=== PATIENT | male | born 1960 | race African-American/Black ===

== ENCOUNTER 2016-10-20 11:31 | Emergency (ER) | payer OTHER ==
[2016-10-20] MEDS ORDERED: Morphine INJ* 4 MG/ML 1 ML SYRINGE IV ONE (13:40)
[2016-10-20] MEDS ORDERED: NS 0.9% 1000 ML* 1,000 ML IV ONE (13:40)
[2016-10-20] MEDS ORDERED: Ondansetron INJ* 2 MG/ML VIAL IV ONE (13:40)
--- NOTE | 2016-10-20 14:02 | RAD ---
INDICATION: Abdominal pain. Chest pain. COMPARISON: None TECHNIQUE: An AP portable view obtained at 1350 hours is submitted. FINDINGS: Bones/Soft Tissues: There are no acute bony findings. Cardiomediastinal: The cardiomediastinal silhouette is normal. Lungs: There are no infiltrates. Pleura: There are no pleural effusions. Other: There is no subdiaphragmatic free air. IMPRESSION: NO ACTIVE DISEASE.
[2016-10-20 14:20] LABS: Hematocrit 49 % (42-52); Mean Corpuscular HGB Conc 34 g/dl (31-36); Mean Corpuscular Hemoglobin 31 pg (27-31); Mean Corpuscular Volume 91 fL (80-94); Mean Platelet Volume 8 um3 (7.4-10.4); Red Blood Count 5.44 10^6/ul (4.0-5.4); Red Cell Distribution Width 15 % (10.5-15); White Blood Count 10.5 10^3/ul (3.5-10.8)
[2016-10-20 14:32] LABS: Albumin 4.5 g/dL (3.2-5.2); BUN/Creatinine Ratio 17.9 (8-20); C Reactive Protein 12.53 mg/L (< 5.00); Calcium 10.3 mg/dL (8.6-10.3); EGFR African American 82.3 (>60); Total Bilirubin 0.6 mg/dL (0.2-1.0); Total Protein 7.5 g/dL (6.4-8.9)
[2016-10-20] MEDS ORDERED: Pantoprazole IV* 40 MG IV ONE (14:35)
--- NOTE | 2016-10-20 14:41 | ED ---
I, Paul,Hugo, scribed for Mariana Padron MD on 10/20/16 at 1343 . Abdominal Pain/Male - HPI Summary HPI Summary: This 56 y/o male presents to ED from [facility] for mid abd pain since today AM. Positive Bright red blood in stool and on wipe, and n/v x2 this morning. Negative diarrhea. Antacid didn't alleviate the pain. PMHx includes Positive HIV that is controlled with medication and prostate CA at unknown stage. Pt was not able to report if his HIV viral load is well controlled or not, but does report that it was last checked last month. Unknown if he ever had pancreatitis. Unknown if he was ever dx with schizophrenia. Pt is current smoker , and is currently denying any substance use. - History of Current Complaint Chief Complaint: EDAbdPain Stated Complaint: ABD PAIN Time Seen by Provider: 10/20/16 13:14 Hx Obtained From: Patient Onset/Duration: Lasting Hours, Still Present Timing: Constant Pain Intensity: 8 Pain Scale Used: 0-10 Numeric Location: Epigastric Radiates: No Aggravating Factor(s): Nothing Alleviating Factor(s): Nothing Associated Signs And Symptoms: Positive: Blood in Stool. Negative: Diarrhea - Allergies/Home Medications Allergies/Adverse Reactions: Allergies Allergy/AdvReac Type Severity Reaction Status Date / Time Penicillins Allergy Hives Verified 10/20/16 11:33 PMH/Surg Hx/FS Hx/Imm Hx - Cancer History Cancer Type, Location and Year: Prostate CA Infectious Disease History: Yes Infectious Disease History: Denies: Traveled Outside the [place] in Last 30 Days - Family History Known Family History: Negative: Diabetes - Social History Occupation: Unemployed - [employer] Alcohol Use: None Hx Substance Use: No Substance Use Type: Reports: None Hx Tobacco Use: Yes Smoking Status (MU): Current Every Day Smoker Review of Systems Negative: Fever Positive: Abdominal Pain - mid abd pain, Vomiting, Nausea, Other - Bright red blood in stool and on wipe. Negative: Diarrhea Negative: dysuria All Other Systems Reviewed And Are Negative: Yes Physical Exam Triage Information Reviewed: Yes Vital Signs On Initial Exam: Initial Vitals Temp Pulse Resp BP Pulse Ox 98.7 F 92 20 136/85 100 10/20/16 11:33 10/20/16 11:33 10/20/16 11:33 10/20/16 11:33 10/20/16 11:33 Vital Signs Reviewed: Yes Appearance: Positive: Well-Appearing, No Pain Distress Skin: Positive: Warm, Skin Color Reflects Adequate Perfusion, Dry Head/Face: Positive: Normal Head/Face Inspection Eyes: Positive: EOMI, YENI Neck: Positive: Supple, Nontender Respiratory/Lung Sounds: Positive: Clear to Auscultation, Breath Sounds Present Cardiovascular: Positive: RRR, Pulses are Symmetrical in both Upper and Lower Extremities Abdomen Description: Positive: Nontender, No Organomegaly, Other: - Rectal exam -- negative Musculoskeletal: Positive: Strength/ROM Intact Neurological: Positive: Sensory/Motor Intact, Alert, Oriented to Person Place, Time Psychiatric: Positive: Affect/Mood Appropriate AVPU Assessment: Alert Diagnostics - Vital Signs Vital Signs Temp Pulse Resp BP Pulse Ox 10/20/16 11:33 98.7 F 92 20 136/85 100 - Laboratory Lab Results: Lab Results 10/20/16 10/20/16 10/20/16 Range/Units 14:03 14:03 14:03 WBC 10.5 (3.5-10.8) 10^3/ul RBC 5.44 H (4.0-5.4) 10^6/ul Hgb 17.0 (14.0-18.0) g/dl Hct 49 (42-52) % MCV 91 (80-94) fL MCH 31 (27-31) pg MCHC 34 (31-36) g/dl RDW 15 (10.5-15) % Plt Count 232 (150-450) 10^3/ul MPV 8 (7.4-10.4) um3 Neut % (Auto) 77.4 (38-83) % Lymph % (Auto) 16.6 L (25-47) % [place] % (Auto) 5.5 (1-9) % Eos % (Auto) 0.1 (0-6) % Baso % (Auto) 0.4 (0-2) % Absolute Neuts (auto) 8.2 H (1.5-7.7) 10^3/ul Absolute Lymphs (auto) 1.7 (1.0-4.8) 10^3/ul Absolute Monos (auto) 0.6 (0-0.8) 10^3/ul Absolute Eos (auto) 0 (0-0.6) 10^3/ul Absolute Basos (auto) 0 (0-0.2) 10^3/ul Absolute Nucleated RBC 0 10^3/ul Nucleated RBC % 0 Sodium 136 (133-145) mmol/L Potassium 4.0 (3.5-5.0) mmol/L Chloride 104 (101-111) mmol/L Carbon Dioxide 24 (22-32) mmol/L Anion Gap 8 (2-11) mmol/L BUN 21 (6-24) mg/dL Creatinine 1.17 (0.67-1.17) mg/dL Est GFR ( Amer) 82.3 (>60) Est GFR (Non-Af Amer) 64.0 (>60) BUN/Creatinine Ratio 17.9 (8-20) Glucose 103 H (70-100) mg/dL Lactic Acid 1.3 (0.5-2.0) mmol/L Calcium 10.3 (8.6-10.3) mg/dL Total Bilirubin 0.60 (0.2-1.0) mg/dL AST 23 (13-39) U/L ALT 25 (7-52) U/L Alkaline Phosphatase 100 (34-104) U/L Troponin I 0.00 (<0.04) ng/mL C-Reactive Protein 12.53 H (< 5.00) mg/L Total Protein 7.5 (6.4-8.9) g/dL Albumin 4.5 (3.2-5.2) g/dL Globulin 3.0 (2-4) g/dL Albumin/Globulin Ratio 1.5 (1-3) Amylase 47 (29-103) U/L Lipase 11 (11.0-82.0) U/L Result Diagrams: 10/20/16 14:03 10/20/16 14:03 Lab Statement: Any lab studies that have been ordered have been reviewed, and results considered in the medical decision making process. - Radiology CXR Xray Interpretation: No Acute Changes Radiology Interpretation Completed By: Radiologist - EKG 1342 Cardiac Rate: NL - 75 bpm EKG Rhythm: Sinus Rhythm - Additional Comments Diagnostic Additional Comments: Stool Occult --- Negative Abdominal Pain Fem Course/Dx - Course Course Of Treatment: 56 yo male with hiv who reports epigastric pain today with emesis and noted some blood in stool. He rectal exam is negative here and labs are normal as well as vital signs including a neg lipase. Pt given protonix and sent with the same - Diagnoses Provider Diagnoses: Abdominal pain, Gastritis Discharge - Discharge Plan Condition: Stable Disposition: HOME Prescriptions: Ondansetron TAB* [Zofran 4 MG Tab*] 4 mg PO Q6H PRN #14 tab MDD 4 PRN Reason: Nausea Pantoprazole Sodium [Protonix] 20 mg PO QAM #14 tab Patient Education Materials: Ondansetron (By mouth), Pantoprazole (By mouth), Abdominal Pain (ED) Referrals: Jennifer PERALTA,Heather Watesr [Primary Care Provider] - 2 Days The documentation as recorded by the Paul lindsay Soohyun accurately reflects the service I personally performed and the decisions made by me, Mariana Padron MD.
[2016-10-20 15:28] VITALS: BP 142/68
== END 2016-10-20 15:31 | disposition home or self-care (01) ==
LOC: ED 11:31
DX: R10.9 Unspecified abdominal pain (principal); K29.70 Gastritis, unspecified, without bleeding; R11.2 Nausea with vomiting, unspecified; F17.210 Nicotine dependence, cigarettes, uncomplicated
CPT/HCPCS: 36415; 71010; 80053; 82150; 82272; 83605; 83690; 84484; 85025; 86140; 87040; 93005; 96374; 96375; 99283; J2270; J2405

== ENCOUNTER 2018-05-14 11:25 | Inpatient (IN) | payer OTHER ==
--- NOTE | 2018-05-14 12:01 | ED ---
Neurological HPI - HPI Summary HPI Summary: This pt is a 58 y/o male presenting to [facility] from [facility] c/o numbness and weakness for about 1 month now. Pt reports he has numbness in bilateral hands and right leg. He describes numbness in the whole right hand up to his forearm and on three fingers of his left hand. He also states having weakness on right leg and sometimes "it negra." Additionally notes neck pain. He denies chest pain, SOB, headache, dizziness, nausea, vomiting. PMHx: COPD, HTN. Denies hx of CVA. - History of Current Complaint Chief Complaint: EDExtremityUpper Stated Complaint: NUMBNESS IN HANDS AND RT LEG Hx Obtained From: Patient Onset/Duration: Started weeks ago - 1 month ago, Still Present Timing: Constant Current Severity: Moderate Neurological Deficit Location: RUE, LUE, RLE Pain Intensity: 0 - denies any pain Pain Scale Used: 0-10 Numeric Character: Weak - right leg, Numbness/Tingling - numbness in bilateral hands Aggravating: Nothing Alleviating: Nothing Associated Signs and Symptoms: Positive: Weakness, Pain - neck, Numbness. Negative: Headache, Dizziness, Nausea/Vomiting, Fever, Chest Pain, Shortness of Breath, Palpitations - Allergy/Home Medications Allergies/Adverse Reactions: Allergies Allergy/AdvReac Type Severity Reaction Status Date / Time Penicillins Allergy Hives Verified 05/14/18 13:02 Home Medications: Home Medications Acetaminophen TAB* [Tylenol TAB*] 650 mg PO BID 05/14/18 [History Confirmed ] Albuterol HFA INHALER* [Ventolin HFA Inhaler*] 2 puff INH QID PRN 05/14/18 [ History Confirmed 05/14/18] Atorvastatin* [Lipitor*] 20 mg PO DAILY 05/14/18 [History Confirmed 05/14/18] Cetirizine* [ZyrTEC 10 MG TAB*] 10 mg PO DAILY 05/14/18 [History Confirmed 05/14] Emtricitabine/Rilpivirine/Teno [Odefsey 200-25-25 mg] 1 tab PO DAILY 05/14/18 [ History Confirmed 05/14/18] Naproxen TAB* [Naprosyn 375 mg TAB*] 375 mg PO BID 05/14/18 [History Confirmed 05/14/18] Ranitidine TAB (NF) [Zantac TAB (NF)] 150 mg PO BID 05/14/18 [History Confirmed 05/14/18] Saliva Stimulant Comb. No.7 [Biotene Oralbalance Dry M] 1 gel PO DAILY PRN 05/14 [History Confirmed 05/14/18] PMH/Surg Hx/FS Hx/Imm Hx Endocrine/Hematology History: Denies: Hx Diabetes Cardiovascular History: Reports: Hx Hypertension Respiratory History: Reports: Hx Chronic Obstructive Pulmonary Disease (COPD) - Cancer History Cancer Type, Location and Year: Prostate CA Infectious Disease History: No Infectious Disease History: Denies: Traveled Outside the US in Last 30 Days - Family History Known Family History: Negative: Blood Disorder - Social History Alcohol Use: None Hx Substance Use: No Substance Use Type: Reports: None Hx Tobacco Use: Yes Smoking Status (MU): Current Every Day Smoker Review of Systems Negative: Fever, Chills Negative: Palpitations, Chest Pain Negative: Shortness Of Breath Negative: Abdominal Pain Musculoskeletal: Other - POSITIVE: neck pain Positive: Weakness, Paresthesia - on bilateral hands All Other Systems Reviewed And Are Negative: Yes Physical Exam - Summary Physical Exam Summary: VITAL SIGNS: Reviewed. GENERAL: Patient is a well-developed and nourished male who is lying comfortable in the stretcher. Patient is not in any acute respiratory distress. HEAD AND FACE: No signs of trauma. No ecchymosis, hematomas or skull depressions. No sinus tenderness. EYES: PERRLA, EOMI x 2, No injected conjunctiva, no nystagmus. EARS: Hearing grossly intact. Ear canals and tympanic membranes are within normal limits. MOUTH: Oropharynx within normal limits. NECK: Supple, trachea is midline, no adenopathy, no JVD, no carotid bruit, no c- spine tenderness, neck with full ROM. CHEST: Symmetric, no tenderness at palpation LUNGS: Clear to auscultation bilaterally. No wheezing or crackles. CVS: Regular rate and rhythm, S1 and S2 present, no murmurs or gallops appreciated. ABDOMEN: Soft, non-tender. No signs of distention. No rebound, no guarding, and no masses palpated. Bowel sounds are normal. EXTREMITIES: FROM in all major joints, no edema, no cyanosis or clubbing. NEURO: Alert and oriented x 3. Patient follows commands. He has tongue rolling when speaking. A little bit of decreased sensation on the right hand. Some weakness on right leg. SKIN: Dry and warm GCS: 15 Triage Information Reviewed: Yes Vital Signs On Initial Exam: Initial Vitals Temp Pulse Resp BP Pulse Ox 98.1 F 64 18 148/96 99 05/14/18 11:27 05/14/18 11:27 05/14/18 11:27 05/14/18 11:27 05/14/18 11:27 Vital Signs Reviewed: Yes Diagnostics - Vital Signs Vital Signs Temp Pulse Resp BP Pulse Ox 05/14/18 11:27 98.1 F 64 18 148/96 99 - Laboratory Result Diagrams: 05/14/18 12:45 05/14/18 12:45 Lab Statement: Any lab studies that have been ordered have been reviewed, and results considered in the medical decision making process. - CT Brain CT CT Interpretation Completed By: Radiologist Summary of CT Findings: IMPRESSION: No evidence for gross acute infarct, mass effect, or hemorrhage. Dr. Rangel has reviewed this report. Cervical spine CT CT Interpretation Completed By: Radiologist Summary of CT Findings: IMPRESSION: 1. Degenerative disc disease and osteoarthritis. 2. There is mild narrowing of the central canal C5-C6 and C6- C7. 3. There is multilevel neuroforaminal narrowing as described above. Dr. Rangel has reviewed this report. - EKG 12:20 Cardiac Rate: NL - at 60 bpm EKG Rhythm: Sinus Rhythm Summary of EKG Findings: J point elevation - Additional Comments Diagnostic Additional Comments: MRI Cervical Spine, as read by radiologist IMPRESSION: There is multilevel degenerative change of the cervical intervetebral discs most severe from C2/C3 to C4/C5. At this interval there is high-grade central canal stenosis with increased T2 bright fluid signal in the spinal cord. Please correlate to clinical signs of myelopathy. Dr. Rangel has reviewed this report. NIH Scale - NIH Scale Level of Consciousness: Alert/Keenly Responsive Ask Patient the Month and His/Her Age: Both Correct Ask Pt to Open/Close Eyes and Intercell Connector Placer/Release Non-Paretic Hand: Both Correctly Best Gaze (Only Horizontal Eye Movement): Normal Visual Field Testing: No Visual Loss Facial Paresis-Pt to Smile & Close Eyes or Grimace Symmetry: Normal/Symmetrical Motor Function - Right Arm: No Drift-Holds 10 Seconds Motor Function - Left Arm: No Drift-Holds 10 Seconds Motor Function - Right Leg: Drifts LT 10 seconds Motor Function - Left Leg: No Drift-Holds 10 Seconds Limb Ataxia-Must be out of Proportion to Weakness Present: Absent Sensory (Use Pinprick to Test Arms/Legs/Trunk/Face): Pinprick Less on Affected Best Language (Describe Picture, Name Items): No Aphasia Dysarthria (Read Several Words): Normal Extinction and Inattention: No Abnormality Total Score: 2 Re-Evaluation - Re-Evaluation First Eval Re-Evaluation Time: 13:52 Comment: Dr. Reyes, neurologist, recommends neck MRI. Course/Dx - Course Assessment/Plan: This pt is a 58 y/o male presenting [place] [facility] c/o numbness and weakness for about 1 month now. Pt reports he has numbness in bilateral hands and right leg. He describes numbness in the whole right hand up to his forearm and on three fingers of his left hand. He also states having weakness on right leg and sometimes "it negra." He denies chest pain, SOB, headache, dizziness, nausea, vomiting. Blood work without any significant abnormality except for a BUN of 25. Head CT impression: No evidence for gross acute infarct, mass effect or hemorrhage. C-spine CT impression: Degenerative disc disease and osteoarthritis. There is mild narrowing of the central canal at C5 and C6 and C6 and C7. There is multiple neural foraminal narrowing. At this point I discussed my physical exam and findings with Dr. Reyes from neurology and he will consult for this patient. Dr. Reyes recommends an MRI of the C-spine. C -spine MRI IMPRESSION: There is multilevel degenerative change of the cervical intervertebral discs most severe from C2/C3 to C4/C5. At this interval there is high-grade central canal stenosis with increased T2 bright fluid signal in the spinal cord. Please correlate to clinical signs of myelopathy. Findings discussed over the telephone with Dr. Reyes at 1642 hours on May 14, 2018. I discussed the case with Dr. Acosta from neurosurgery and he will consult for this patient as an inpatient. I discussed the case with Dr. Lofton from the hospitalist services who accepted the patient for admission. In the ED course the patient was given Toradol, Decadron, and Norflex. At this point the patient is hemodynamically stable, alert and oriented 3. - Diagnoses Provider Diagnoses: Myelopathy, Cord compression - Physician Notifications Discussed Care Of Patient With: Brendon Reyse Time Discussed With Above Provider: 13:06 Instructed by Provider To: Other - I discussed the case with Dr. Reyes, neurologist, who is coming to see the pt in the ED. [17:18] I discussed with Dr. Acosta, neurosurgeon, who will consult on the pt as an inpatient. [17:28] I spoke with Dr. Lofton, hospitalist, who accepted the pt for admission. Discharge - Sign-Out/Discharge Documenting (check all that apply): Patient Departure - [place] [facility] [place] Discharge Plan Condition: Stable Disposition: ADMITTED TO [facility] Referrals: Jennifer PERALTA,Heather Waters [Primary Care Provider] - - Billing Disposition and Condition Condition: STABLE Disposition: Admitted to [facility] - Attestation Statements Document Initiated by Apple: Yes Documenting Scribe: Ilsa Booth Provider For Whom Apple is Documenting (Include Credential): Ricardo Rangel MD Scribe Attestation: I, Ilsa Booth, scribed for Ricardo Rangel MD on 05/14/18 at 1904. Scribe Documentation Reviewed: Yes Provider Attestation: The documentation as recorded by the Ilsa lindsay accurately reflects the service I personally performed and the decisions made by me, Ricardo Rangel MD Status of Scribe Document: Viewed
[2018-05-14] MEDS ORDERED: NS 0.9% 1000 ML* 1,000 ML IV ONE (12:03)
[2018-05-14 13:01] LABS: ABS Basophils 0 10^3/ul (0-0.2); ABS Eosinophils 0.1 10^3/ul (0-0.6); ABS Lymphocytes 2.3 10^3/ul (1.0-4.8); ABS Monocytes 0.5 10^3/ul (0-0.8); ABS Neutrophils 2.5 10^3/ul (1.5-7.7); ABS Nucleated RBC 0 10^3/ul; Eosinophil % 2.2 %; Hematocrit 46 % (42-52); Hemoglobin 16.1 g/dl (14.0-18.0); Lymphocyte % 41.9 %; Mean Corpuscular HGB Conc 35 g/dl (31-36); Mean Corpuscular Hemoglobin 33 pg (27-31); Mean Corpuscular Volume 95 fL (80-94); Mean Platelet Volume 7.7 fL (7.4-10.4); Nucleated Red Blood Cells % 0.3; Platelet Count 222 10^3/ul (150-450); Red Blood Count 4.84 10^6/ul (4.00-5.40); Red Cell Distribution Width 14 % (10.5-15); White Blood Count 5.5 10^3/ul (3.5-10.8)
[2018-05-14 13:20] LABS: INR 1.13 (0.77-1.02)
[2018-05-14 13:23] LABS: Albumin/Globulin Ratio 1.6 (1-3); BUN/Creatinine Ratio 21.9 (8-20); Calcium 9.4 mg/dL (8.6-10.3); EGFR Non-African American 65.5 (>60); Globulin 2.5 g/dL (2-4); HDL Cholesterol 32.9 mg/dL; Potassium 4.2 mmol/L (3.5-5.0); Total Bilirubin 0.4 mg/dL (0.2-1.0); Total Protein 6.5 g/dL (6.4-8.9)
[2018-05-14] MEDS ORDERED: Dexamethasone IV* 4 MG/ML 1 ML (4 MG) IV SLOW PU ONE (17:24)
[2018-05-14] MEDS ORDERED: Ketorolac INJ* 30 MG/ML 1 ML VIAL IM ONE (17:25)
[2018-05-14] MEDS ORDERED: Orphenadrine Citrate IV* 30 MG/ML 2 ML VIAL IV ONE (17:25)
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
[2018-05-14] MEDS ORDERED: Acetaminophen TAB* 325 MG PO PRN (18:48)
[2018-05-14] MEDS ORDERED: Albuterol HFA INHALER* 8 gm MDI INH PRN (18:48)
[2018-05-14] MEDS ORDERED: Dexamethasone IV* 4 MG in NS 0.9% 50 ML* 50 ML IVPB SCH (19:00)
[2018-05-14 19:54] LABS: Urine Appearance Clear; Urine Bilirubin Negative (Negative); Urine Blood Negative (Negative); Urine Color Yellow; Urine Glucose Negative (Negative); Urine Ketones Negative (Negative); Urine Nitrite Negative (Negative); Urine Protein Negative (Negative); Urine Specific Gravity 1.012 (1.010-1.030); Urine Urobilinogen Negative (Negative)
--- NOTE | 2018-05-14 20:03 | HP ---
ADMITTING HISTORY AND PHYSICAL: DATE OF ADMISSION: 05/14/18 CHIEF COMPLAINT: Bilateral hand numbness and leg weakness. HISTORY OF PRESENT ILLNESS: The patient is a 58-year-old gentleman with history of being HIV positive, on antiretroviral therapy; asthma ; GERD; and hyperlipidemia who is currently a resident at [facility]; who mentions that he has been having some problems with numbness in both hands for about a month. He mentions that all of his fingers on the right are numb; on the left, it is mainly on the first 3 digits. He denied any neck pain on the area. He denied any recent fevers or chills. Dr. Reyes has evaluated the patient who suggested a cervical MRI with an initial impression of probable bilateral carpal tunnel syndrome. Unfortunately, the MRI came back with an impression of multilevel degenerative change of the cervical intervertebral disk , most severe from C2-C3, C4- C5, and there is a high-grade central canal stenosis with increased T2 bright fluid signal in the spinal cord. I have discussed the above with Dr. Jain given Dr. Reyes's time has just recently for consults and Dr. Jain was up. He mentioned to call Neurosurgery right away and to further perform physical examination to further evaluate the patient for possible surgery. On my discussion with Dr. Acosta, he mentions that he does not seem to be as concerned at this time given the acuity and the length of time the patient has been having symptoms has been about a month. He mentioned to place the patient on dexamethasone IV q.6 hours until he is reevaluated by Neurosurgery and we will defer. PAST MEDICAL HISTORY: HIV positivity since 1994, on antiretroviral therapy; history of asthma; GERD; hyperlipidemia. ALLERGIES: To [place], where he gets hives. SOCIAL HISTORY: He has had previous history of smoking cocaine. He claims that he does not inject it or snort it. The last time he used was 4 years ago. He is currently a resident of [facility] for 18 months now. He has a history of 1 pack per day smoking history for greater than 40 years. He denies any history of alcohol use, and his daughter is his next of kin who lives in [place] and her number is [phone]. Another point of contact is his niece, Chayo, with a number of [phone]. REVIEW OF SYSTEMS: The patient denied any current headaches, dizziness, fevers , chills, nausea, vomiting, chest pain, shortness of breath, increased cough, or sputum production. He does complain of right knee pain, where he mentions that he had cracks often but currently not in pain. The pain on the right knee would come in on and off/intermittently. Denies any new skin lesions. The rest of the 14- point review of systems is otherwise unremarkable. PHYSICAL EXAMINATION GENERAL APPEARANCE: The patient is awake, alert, not in acute distress. VITAL SIGNS: Show the most recent vital signs of record with blood pressure 146 /103, 72 beats per minute heart rate, 16 per minute respiratory rate. HEENT: Normocephalic, atraumatic. PERRLA. Extraocular muscles intact. Negative for icterus. Moist oral mucosa. Negative throat erythema. NECK: Soft, supple with no cervical lymphadenopathy, no JVD. CHEST: Clear to auscultation bilaterally. Good air entry. No wheezes, rales, or rhonchi. HEART: S1, S2 within normal limits. Regular rate and rhythm. No murmurs, rubs , or gallops. ABDOMEN: Soft, nondistended, nontender. Normoactive bowel sounds x4 quadrants. EXTREMITIES: No cyanosis, clubbing, or edema. NEUROLOGIC: Numbness in the bilateral upper extremities as described above and the patient complains of weakness on the right lower extremity, but my examination as far as strength is concerned is about equal on both sides. PSYCHIATRIC: No active psychosis, depression. The patient with blunt affect. ASSESSMENT AND PLAN: 1. BL UE numbness: Possibly due to canal stenosis as shown in MRI; Spoke w/ both Drs. Jain and Dave. At this time, continue IV Dexamethasone per Dr. Acosta until pt is reassessed in AM. Given chronicity, per Dr. Acosta, no acute need for surgery at this time w/c can certainly be planned later when needed. Will defer. 2. Hypertension. We will place the patient on a heart-healthy diet and a low dose amlodipine and we will continue watchful waiting. 3. Chronic pain. Continue p.r.n. Tylenol and Tylenol b.i.d. as well as naproxen. 4. Gastroesophageal reflux disease. We will continue with famotidine. He was previously on ranitidine at home, but we will place him on famotidine as a formulary. 5. Human immunodeficiency virus positivity. We will continue Odefsey. 6. DVT prophylaxis: We will place the patient on Lovenox for DVT prophylaxis. 7. Disposition: For PT eval and we will await further input from Dr. Acosta. [id number]/[facility] #: [id number] KAIDEN
[2018-05-14] MEDS ORDERED: Enoxaparin(*) 40 MG/0.4 ML SYR SUBCUT SCH (21:00)
[2018-05-14] MEDS: Famotidine TAB* 20 MG PO SCH (23:10)
[2018-05-14] MEDS: Naproxen TAB* 375 MG PO SCH (23:11)
[2018-05-14] MEDS: Acetaminophen TAB* 325 MG PO SCH (23:11)
[2018-05-14] MEDS: Dexamethasone IV* 4 MG/ML 1 ML (4 MG) IV SLOW PU SCH (23:13)
[2018-05-14] MEDS: amLODIPine TAB* 5 MG PO SCH (23:24)
[2018-05-15] MEDS: Dexamethasone IV* 4 MG/ML 1 ML (4 MG) IV SLOW PU SCH ×4 (04:48→21:49)
[2018-05-15] MEDS: Naproxen TAB* 375 MG PO SCH ×2 (08:40→21:46)
[2018-05-15] MEDS: amLODIPine TAB* 5 MG PO SCH ×2 (08:41→10:31)
[2018-05-15] MEDS: Famotidine TAB* 20 MG PO SCH ×2 (08:41→21:48)
[2018-05-15] MEDS: Acetaminophen TAB* 325 MG PO SCH ×2 (08:41→21:47)
[2018-05-15] MEDS: Atorvastatin* 20 MG TAB PO SCH (08:41)
[2018-05-15] MEDS: Metoprolol Tartrate TAB* 25 MG PO SCH ×2 (10:31→21:48)
--- NOTE | 2018-05-15 11:23 | PN ---
Progress Note - Progress Note Date of Service: 05/15/18 SOAP: Subjective: []Patient with one month history of hand weakness. More recently he has had difficulty ambulating secondary to RLE weakness. He was seen in ER where workup revealed cervical spondylosis with cord signal changes at C3/4.Admitted by hospitalist service and started on steroids. Objective: []Bilat intrinsic weakness Bilat Hoffmans signs Prox RLE weakness,numbness Assessment: []MRI shows severe cord compression at C3/4 Plan: []Discussed need for surgery with patient. Have tentatively scheduled surgery for [facility] pending approval
--- NOTE | 2018-05-15 13:34 | PN ---
Subjective Date of Service: 05/15/18 Interval History: Pt seen and examined. Meds and labs reviewed. Pt in good spirits this AM and mentions his BLUE numbness has somewhat improved. CC: N/A. ROS: Denied VARNER/dizziness, F/C, N/V, CP, SOB, increased cough, sputum production , abd pain, diarrhea, constipation, dysuria, myalgias, arthralgias, throat pain , and new skin lesions. The rest of the 14 point ROS are unremarkable. PHYSICAL EXAM: GEN APPEARANCE: Awake, not in acute distress HEENT: NC/AT, PERRLA, moist oral mucosa, (-) throat erythema NECK: Soft, supple, (-) cervical LAD, (-)JVD HEART: S1S2 WNL, RRR, No MRG CHEST: CTA, BL, GAE, No W/R/R ABD: Soft, ND/NT, NABS 4x Q EXT: No C/C/E SKIN: Warm to touch PSYCH: No active psychosis, hallucinations, depression, SI/HI Objective Active Medications: Acetaminophen (Tylenol Tab*) 650 mg PO Q6H PRN PRN Reason: PAIN Acetaminophen (Tylenol Tab*) 650 mg PO BID [facility] Last Admin: 05/15/18 08:41 Dose: 650 mg Albuterol (Ventolin Hfa Inhaler*) 2 puff INH QID PRN PRN Reason: SHORTNESS OF BREATH Amlodipine Besylate (Norvasc Tab*) 10 mg PO DAILY [facility] Last Admin: 05/15/18 10:31 Dose: 5 mg Atorvastatin Calcium (Lipitor*) 20 mg PO DAILY [facility] Last Admin: 05/15/18 08:41 Dose: 20 mg Dexamethasone Sodium Phosphate (Decadron Iv*) 4 mg IV SLOW PU Q6H [facility] Last Admin: 05/15/18 10:31 Dose: 4 mg Emtricitabine/Rilpivirine/Tenofovir (Odefsey Tablet) 1 each PO DAILY [facility] Famotidine (Pepcid Tab*) 20 mg PO BID [facility] Last Admin: 05/15/18 08:41 Dose: 20 mg Heparin Sodium (Porcine) (Heparin Vial(*)) 5,000 units SUBCUT Q8HR [facility] Metoprolol Tartrate (Lopressor Tab*) 25 mg PO BID [facility] Last Admin: 05/15/18 10:31 Dose: 25 mg Naproxen (Naprosyn Tab*) 375 mg PO BID [facility] Last Admin: 05/15/18 08:40 Dose: 375 mg Vital Signs - 8 hr 05/15/18 05/15/18 05/15/18 07:16 08:00 12:12 Temperature 97.3 F 98.2 F Pulse Rate 93 Respiratory 24 24 18 Rate Blood Pressure 147/85 148/98 (mmHg) O2 Sat by Pulse 99 99 Oximetry Oxygen Devices in Use Now: None Result Diagrams: 05/14/18 12:45 05/14/18 12:45 Assess/Plan/Problems-Billing Assessment: - Patient Problems (1) Cord compression Current Visit: Yes Status: Acute Code(s): G95.20 - UNSPECIFIED CORD COMPRESSION SNOMED Code(s): 87834831 Comment: -Most severe at C2-C3 to C4-C5 -Appreciate Dr. Acosta input and pt being planned for cord decompression on -Continue IV Dexamethasone and PRN pain meds (2) HTN (hypertension) Current Visit: Yes Status: Acute Code(s): I10 - ESSENTIAL (PRIMARY) HYPERTENSION SNOMED Code(s): 88371332 Comment: -Advised life-style modifications -Maximized Amlodipine dose -Continue Heart healthy diet and will add low sodium as a dietary modification -Continue watchful waiting (3) Chronic pain Current Visit: Yes Status: Acute Code(s): G89.29 - OTHER CHRONIC PAIN SNOMED Code(s): 55529764 Comment: -Well-controlled (4) HIV (human immunodeficiency virus infection) Current Visit: Yes Status: Acute Comment: -Continue anti-retroviral therapy (5) GERD (gastroesophageal reflux disease) Current Visit: Yes Status: Acute Code(s): K21.9 - GASTRO-ESOPHAGEAL REFLUX DISEASE WITHOUT ESOPHAGITIS SNOMED Code(s): 458842851 Comment: -Continue Famotidine (6) DVT prophylaxis Current Visit: Yes Status: Acute Code(s): UIB1293 - SNOMED Code(s): 535956986 Comment: -Will D/C Lovenox and instead will place pt on Heparin SQ in anticipation of decompressive Sx on Thursday Status and Disposition: -As above
[2018-05-15] MEDS: Heparin VIAL(*) 5000 UNITS/ML VIAL (FIVE THOUSAND) SUBCUT SCH ×2 (13:44→21:55)
[2018-05-15] MEDS: PTO: Emtricitabine/Rilpivirine/Teno (Odefsey) 200/25/25 TABLET PO SCH (15:14)
[2018-05-15] MEDS ORDERED: Nicotine Inhaler* 10 MG AMP INH PRN (18:18)
[2018-05-15] MEDS: Nicotine PATCH 21 MG/24 HR* PATCH TRANSDERM SCH (18:31)
--- NOTE | 2018-05-15 21:30 | CONS ---
NEUROLOGICAL FOLLOWUP NOTE: DATE OF NOTE: 05/15/18 PATIENT OF: Dr. Encarnacion and Dr. Acosta. HISTORY: This is a 58-year-old man I am seeing in followup for his cervical stenosis mostly at C3-4 with a history of weakness in his right hand, buckling of his right leg and numbness in both hands for about a month with an MRI scan, which I reviewed showing significant stenosis in his cervical cord with some cord compression at C3 and C4. MEDICATIONS: 1. Dexamethasone 4 mg q.6 hours. 2. Of note, he is treated for HIV with Odefsey 1 tab daily. 3. Norvasc 10 mg daily. 4. Lipitor. PHYSICAL EXAMINATION: He has no worsening since yesterday on exam. Temperature 98.2, pulse 93, respirations 18, blood pressure 148/98. He is alert and oriented with normal speech and comprehension. Cranial nerves II through XII are intact. Motor exam revealed weakness in his right arm with trace weakness in his right leg. Brisk reflexes 3+ in both legs, 1 in his arms. Toes are downgoing. IMAGING: Review of his MRI scan as above. ASSESSMENT/PLAN: Dr. Acosta has seen him and is planning on surgery to treat his significant cervical stenosis/myelopathy and will be doing this in a timely manner. The patient has been stable since yesterday and these symptoms have been going on for about a month overall. I will not be available through this weekend and another neurologist will be on. Please call us as needed. Thank you for sharing his case. [id number]/[facility] #: [id number] MTDD
[2018-05-16] MEDS: Dexamethasone IV* 4 MG/ML 1 ML (4 MG) IV SLOW PU SCH ×4 (04:20→22:04)
[2018-05-16] MEDS: Heparin VIAL(*) 5000 UNITS/ML VIAL (FIVE THOUSAND) SUBCUT SCH ×3 (05:49→22:04)
[2018-05-16 07:13] LABS: Hematocrit 46 % (42-52); Mean Corpuscular HGB Conc 35 g/dl (31-36); Mean Corpuscular Hemoglobin 33 pg (27-31); Mean Corpuscular Volume 94 fL (80-94); Mean Platelet Volume 8.5 fL (7.4-10.4); Platelet Count 246 10^3/ul (150-450); Red Blood Count 4.89 10^6/ul (4.00-5.40); Red Cell Distribution Width 14 % (10.5-15); White Blood Count 20.9 10^3/ul (3.5-10.8)
[2018-05-16 07:32] LABS: Albumin 4.4 g/dL (3.2-5.2); Albumin/Globulin Ratio 1.7 (1-3); BUN/Creatinine Ratio 21.6 (8-20); Calcium 9.8 mg/dL (8.6-10.3); EGFR Non-African American 74.5 (>60); Globulin 2.6 g/dL (2-4); Magnesium 2.1 mg/dL (1.9-2.7); Phosphorus 3.5 mg/dL (2.5-5.0); Potassium 4.2 mmol/L (3.5-5.0); Total Bilirubin 0.4 mg/dL (0.2-1.0)
[2018-05-16] MEDS: Nicotine PATCH 21 MG/24 HR* PATCH TRANSDERM SCH (08:19)
[2018-05-16] MEDS: Acetaminophen TAB* 325 MG PO SCH ×2 (08:20→20:23)
[2018-05-16] MEDS: Famotidine TAB* 20 MG PO SCH ×2 (08:20→20:22)
[2018-05-16] MEDS: amLODIPine TAB* 5 MG PO SCH (08:20)
[2018-05-16] MEDS: Metoprolol Tartrate TAB* 25 MG PO SCH ×2 (08:21→20:21)
[2018-05-16] MEDS: Atorvastatin* 20 MG TAB PO SCH (08:21)
[2018-05-16] MEDS: PTO: Emtricitabine/Rilpivirine/Teno (Odefsey) 200/25/25 TABLET PO SCH (08:25)
[2018-05-16] MEDS: Naproxen TAB* 375 MG PO SCH (08:25)
--- NOTE | 2018-05-16 12:58 | PN ---
Subjective Date of Service: 05/16/18 Interval History: Pt seen and examined. Meds and labs reviewed. D/W Dr. Acosta this AM given he mentions his anesthesiologist noted that EKG has some ST segment elevation. Clarified that there is no new EKG changes from previous EKG dated 10/20/16. Furthermore, pt is both asymptomatic with normal troponins on admission. I did offer to trend troponins x2 more to make sure there are no confounders to this interpretation. Please see discussion below. CC: N/A ROS: Denied VARNER/dizziness, F/C, N/V, CP, SOB, increased cough, sputum production , abd pain, diarrhea, constipation, dysuria, myalgias, arthralgias, throat pain , and new skin lesions. The rest of the 14 point ROS are unremarkable. PHYSICAL EXAM: GEN APPEARANCE: Awake, not in acute distress HEENT: NC/AT, PERRLA, moist oral mucosa, (-) throat erythema NECK: Soft, supple, (-) cervical LAD, (-)JVD HEART: S1S2 WNL, RRR, No MRG CHEST: CTA, BL, GAE, No W/R/R ABD: Soft, ND/NT, NABS 4x Q EXT: No C/C/E SKIN: Warm to touch PSYCH: No active psychosis, hallucinations, depression, SI/HI Objective Active Medications: Acetaminophen (Tylenol Tab*) 650 mg PO Q6H PRN PRN Reason: PAIN Acetaminophen (Tylenol Tab*) 650 mg PO BID [facility] Last Admin: 05/16/18 08:20 Dose: 650 mg Albuterol (Ventolin Hfa Inhaler*) 2 puff INH QID PRN PRN Reason: SHORTNESS OF BREATH Amlodipine Besylate (Norvasc Tab*) 10 mg PO DAILY [facility] Last Admin: 05/16/18 08:20 Dose: 10 mg Atorvastatin Calcium (Lipitor*) 20 mg PO DAILY [facility] Last Admin: 05/16/18 08:21 Dose: 20 mg Dexamethasone Sodium Phosphate (Decadron Iv*) 4 mg IV SLOW PU Q6H [facility] Last Admin: 05/16/18 12:09 Dose: 4 mg Emtricitabine/Rilpivirine/Tenofovir (Odefsey Tablet) 1 each PO DAILY [facility] Last Admin: 05/16/18 08:25 Dose: 1 each Famotidine (Pepcid Tab*) 20 mg PO BID [facility] Last Admin: 05/16/18 08:20 Dose: 20 mg Heparin Sodium (Porcine) (Heparin Vial(*)) 5,000 units SUBCUT Q8HR [facility] Last Admin: 05/16/18 05:49 Dose: 5,000 units Metoprolol Tartrate (Lopressor Tab*) 25 mg PO BID [facility] Last Admin: 05/16/18 08:21 Dose: 25 mg Nicotine (Nicotine Inhaler*) 10 mg INH Q2H PRN PRN Reason: CRAVING Nicotine (Nicotine Patch 21 Mg/24 Hr*) 1 patch TRANSDERM DAILY [facility] Last Admin: 05/16/18 08:19 Dose: 1 patch Oxycodone/Acetaminophen (Percocet 5/325 Tab*) 1 tab PO Q6H PRN PRN Reason: PAIN Vital Signs - 8 hr 05/16/18 05/16/18 07:30 11:33 Temperature 98.3 F 98.9 F Respiratory 16 18 Rate Blood Pressure 155/96 144/79 (mmHg) O2 Sat by Pulse 99 98 Oximetry Oxygen Devices in Use Now: None Result Diagrams: 05/16/18 06:17 05/16/18 06:17 Assess/Plan/Problems-Billing Assessment: - Patient Problems (1) Cord compression Current Visit: Yes Status: Acute Code(s): G95.20 - UNSPECIFIED CORD COMPRESSION SNOMED Code(s): 94372748 Comment: -Most severe at C2-C3 to C4-C5 -Appreciate Drs. Dale, Denton, and Crystal input and pt being planned for cord decompression on 05/17/18 -Continue IV Dexamethasone and PRN pain meds (2) Leukocytosis Current Visit: Yes Status: Acute Code(s): D72.829 - ELEVATED WHITE BLOOD CELL COUNT, UNSPECIFIED SNOMED Code(s): 119790299 Comment: -Pt is afebrile and hemodynamically stable -Likely due to peripheral demarginalization induced by Dexamethasone -Continue watchful waiting -Will check CXR pre-op, although my phys exam is normal (3) Pre-op evaluation Current Visit: Yes Status: Acute Code(s): Z01.818 - ENCOUNTER FOR OTHER PREPROCEDURAL EXAMINATION SNOMED Code(s): 385494303 Comment: -Pt is a low cardiac risk w/RCRI =1, constituting 0.9% perioperative MACE for a high risk neurosurgical procedure -Reviewed EKG w/Dr. Acosta and second set of troponin since admission remains normal and pt remains asymptomatic; no EKG changes and mainly diffuse J-point elevations on EKGNOT ST elevation -Other than asthma that is not in exacerbation, pt does not have any other history of cardiac nor pulmonary problems and none are active at this time. -Will check CXR pre-op given leukocytosis, although my phys exam is normal (4) HTN (hypertension) Current Visit: Yes Status: Acute Code(s): I10 - ESSENTIAL (PRIMARY) HYPERTENSION SNOMED Code(s): 66584485 Comment: -Advised life-style modifications -Maximized Amlodipine dose -Continue Heart healthy diet and will add low sodium as a dietary modification -Continue watchful waiting (5) Chronic pain Current Visit: Yes Status: Acute Code(s): G89.29 - OTHER CHRONIC PAIN SNOMED Code(s): 33420157 Comment: -Well-controlled (6) HIV (human immunodeficiency virus infection) Current Visit: Yes Status: Acute Comment: -Continue anti-retroviral therapy (7) GERD (gastroesophageal reflux disease) Current Visit: Yes Status: Acute Code(s): K21.9 - GASTRO-ESOPHAGEAL REFLUX DISEASE WITHOUT ESOPHAGITIS SNOMED Code(s): 918124816 Comment: -Continue Famotidine (8) DVT prophylaxis Current Visit: Yes Status: Acute Code(s): OVS0224 - SNOMED Code(s): 393978475 Comment: -Continue SQ Heparin Status and Disposition: -Pt is a low cardiac risk w/RCRI =1, constituting 0.9% perioperative MACE for a high risk neurosurgical procedure -For planned cord decompression in AM
[2018-05-16] MEDS: oxyCODONE/Acetamin 5/325 MG* TAB PO PRN ×2 (14:14→20:21)
[2018-05-17] MEDS: Heparin VIAL(*) 5000 UNITS/ML VIAL (FIVE THOUSAND) SUBCUT SCH ×3 (05:43→22:01)
[2018-05-17] MEDS: Dexamethasone IV* 4 MG/ML 1 ML (4 MG) IV SLOW PU SCH ×2 (05:48→13:32)
[2018-05-17 07:03] LABS: Hematocrit 46 % (42-52); Mean Corpuscular HGB Conc 35 g/dl (31-36); Mean Corpuscular Hemoglobin 33 pg (27-31); Mean Corpuscular Volume 95 fL (80-94); Mean Platelet Volume 7.9 fL (7.4-10.4); Platelet Count 242 10^3/ul (150-450); Red Blood Count 4.82 10^6/ul (4.00-5.40); Red Cell Distribution Width 14 % (10.5-15); White Blood Count 18.6 10^3/ul (3.5-10.8)
[2018-05-17 07:16] LABS: BUN/Creatinine Ratio 30.7 (8-20); Calcium 9.5 mg/dL (8.6-10.3); EGFR Non-African American 75.4 (>60); Potassium 4.1 mmol/L (3.5-5.0)
--- NOTE | 2018-05-17 08:42 | PN ---
Subjective Date of Service: 05/17/18 Interval History: Some pain in knee and arms, well controlled. Walks a little Occ cough. No new c/o. Objective Active Medications: Acetaminophen (Tylenol Tab*) 650 mg PO Q6H PRN PRN Reason: PAIN Acetaminophen (Tylenol Tab*) 650 mg PO BID [facility] Last Admin: 05/16/18 20:23 Dose: Not Given Albuterol (Ventolin Hfa Inhaler*) 2 puff INH QID PRN PRN Reason: SHORTNESS OF BREATH Amlodipine Besylate (Norvasc Tab*) 10 mg PO DAILY [facility] Last Admin: 05/16/18 08:20 Dose: 10 mg Atorvastatin Calcium (Lipitor*) 20 mg PO DAILY [facility] Last Admin: 05/16/18 08:21 Dose: 20 mg Dexamethasone Sodium Phosphate (Decadron Iv*) 4 mg IV SLOW PU Q6H [facility] Last Admin: 05/17/18 05:48 Dose: 4 mg Emtricitabine/Rilpivirine/Tenofovir (Odefsey Tablet) 1 each PO DAILY [facility] Last Admin: 05/16/18 08:25 Dose: 1 each Famotidine (Pepcid Tab*) 20 mg PO BID [facility] Last Admin: 05/16/18 20:22 Dose: 20 mg Heparin Sodium (Porcine) (Heparin Vial(*)) 5,000 units SUBCUT Q8HR [facility] Last Admin: 05/17/18 05:43 Dose: Not Given Metoprolol Tartrate (Lopressor Tab*) 25 mg PO BID [facility] Last Admin: 05/16/18 20:21 Dose: 25 mg Nicotine (Nicotine Inhaler*) 10 mg INH Q2H PRN PRN Reason: CRAVING Nicotine (Nicotine Patch 21 Mg/24 Hr*) 1 patch TRANSDERM DAILY [facility] Last Admin: 05/16/18 08:19 Dose: 1 patch Oxycodone/Acetaminophen (Percocet 5/325 Tab*) 1 tab PO Q6H PRN PRN Reason: PAIN Last Admin: 05/16/18 20:21 Dose: 1 tab Vital Signs - 8 hr 05/17/18 02:53 Temperature 97.2 F Pulse Rate 82 Respiratory 19 Rate Blood Pressure 127/77 (mmHg) O2 Sat by Pulse 99 Oximetry Oxygen Devices in Use Now: None Appearance: Alert, partly up in bed. Neutral affect. Looks comfortable although in shackles. Eyes: No Scleral Icterus Ears/Nose/Mouth/Throat: NL Teeth, Lips, Gums Neck: NL Appearance and Movements; NL JVP, No Thyroid Enlargement, Masses Respiratory: Symmetrical Chest Expansion and Respiratory Effort, Clear to Auscultation, Clear to Percussion Cardiovascular: NL Sounds; No Murmurs; No JVD, RRR, No Edema, - Skin: No Rash or Ulcers, No Nodules or Sclerosis, - Neurological: Alert and Oriented x 3 - LAU, no tremor. Result Diagrams: 05/17/18 06:48 05/17/18 06:48 Assess/Plan/Problems-Billing Assessment: - Patient Problems (1) Cord compression Current Visit: Yes Status: Acute Code(s): G95.20 - UNSPECIFIED CORD COMPRESSION SNOMED Code(s): 91757475 Comment: -Most severe at C2-C3 to C4-C5 -Appreciate Drs. aDle, Denton, and Crystal input and pt being planned for cord decompression on 05/17/18 -Continue IV Dexamethasone and PRN pain meds (2) HTN (hypertension) Current Visit: Yes Status: Acute Code(s): I10 - ESSENTIAL (PRIMARY) HYPERTENSION SNOMED Code(s): 05346163 Comment: Continue Amlodipine. -Continue Heart healthy diet. (3) HIV (human immunodeficiency virus infection) Current Visit: Yes Status: Acute Comment: -Continue anti-retroviral therapy (4) Leukocytosis Current Visit: Yes Status: Acute Code(s): D72.829 - ELEVATED WHITE BLOOD CELL COUNT, UNSPECIFIED SNOMED Code(s): 567017836 Comment: -Pt is afebrile and hemodynamically stable -Likely due to peripheral demarginalization induced by Dexamethasone -Continue watchful waiting CXR 05/16 neg. (5) GERD (gastroesophageal reflux disease) Current Visit: Yes Status: Acute Code(s): K21.9 - GASTRO-ESOPHAGEAL REFLUX DISEASE WITHOUT ESOPHAGITIS SNOMED Code(s): 916583730 Comment: -Continue Famotidine (6) Tobacco abuse Current Visit: Yes Status: Acute Code(s): Z72.0 - TOBACCO USE SNOMED Code( s): 022648449 Comment: Continue NRT. Pt advised to quit smoking and avoid second hand smoke. Status and Disposition: -Pt is a low cardiac risk w/RCRI =1, constituting 0.9% perioperative MACE for a high risk neurosurgical procedure -For planned cord decompression in AM
[2018-05-17] MEDS ORDERED: Bacitracin IV* 50,000 UNITS INJ ONE (08:58)
[2018-05-17] MEDS ORDERED: Midazolam* 1 MG/ML 5 ML VIAL (5 MG) ONE (08:58)
[2018-05-17] MEDS ORDERED: fentaNYL* 50 MCG/ML 2 ML VIAL (100 MCG VIAL) ONE (08:58)
[2018-05-17] MEDS ORDERED: Lidocain 1% EPI 1:100,000 * 30 ML MDV ONE (08:58)
[2018-05-17] MEDS ORDERED: KETAMINE HCL* 50 MG/ML 10 ML VIAL ONE (08:58)
[2018-05-17] MEDS ORDERED: Thrombin 5,000 UNITS(BOVINE)* for Ultrasound Guided Pseudoaneursym ONE (08:58)
[2018-05-17] MEDS ORDERED: Atracurium* 10 MG/ML 10 ML VIAL ONE (08:58)
[2018-05-17] MEDS: Atorvastatin* 20 MG TAB PO SCH (09:04)
[2018-05-17] MEDS: Acetaminophen TAB* 325 MG PO SCH ×2 (09:04→22:00)
[2018-05-17] MEDS: PTO: Emtricitabine/Rilpivirine/Teno (Odefsey) 200/25/25 TABLET PO SCH (09:04)
[2018-05-17] MEDS: amLODIPine TAB* 5 MG PO SCH (09:05)
[2018-05-17] MEDS: Metoprolol Tartrate TAB* 25 MG PO SCH ×2 (09:05→22:01)
[2018-05-17] MEDS: oxyCODONE/Acetamin 5/325 MG* TAB PO PRN (09:05)
[2018-05-17] MEDS: Famotidine TAB* 20 MG PO SCH ×2 (09:05→22:00)
[2018-05-17] MEDS: Nicotine PATCH 21 MG/24 HR* PATCH TRANSDERM SCH (09:06)
[2018-05-17] MEDS ORDERED: Clindamycin 900 MG/D5W BAG(*) 900 MG/50 ML BAG IVPB ONE (09:31)
[2018-05-17] MEDS ORDERED: EPHEDrine (Pressors)* 50 MG/ML VIAL ONE (10:30)
[2018-05-17] MEDS ORDERED: Glycopyrrolate IV* 0.2 MG/ML 1 ML VIAL ONE (10:30)
[2018-05-17] MEDS ORDERED: Propofol* 10 MG/ML 20 ML BTL ONE (10:30)
[2018-05-17] MEDS ORDERED: Dexamethasone IV* 4 MG/ML 1 ML (4 MG) ONE (10:31)
[2018-05-17] MEDS ORDERED: Ondansetron INJ* 2 MG/ML VIAL ONE (10:31)
[2018-05-17] MEDS ORDERED: Lidocaine 2% PF * 5 ML VIAL ONE (10:32)
[2018-05-17] MEDS ORDERED: Morphine VIAL* 10 MG/ML 1 ML VIAL ONE (10:32)
[2018-05-17] MEDS ORDERED: Phenylephrine INJ* 10 MG/ML 1 ML VIAL (10 MG) ONE (10:32)
[2018-05-17] MEDS ORDERED: hydrALAZINE IV* 20 MG/ML VIAL ONE (11:01)
[2018-05-17] MEDS ORDERED: Ondansetron INJ* 2 MG/ML VIAL IV PRN (11:15)
[2018-05-17] MEDS ORDERED: Flumazenil* 0.1 MG/ML 5 ML MDV ONE (11:15)
[2018-05-17] MEDS ORDERED: Naloxone* 0.4 MG/ML 1 ML VIAL IV PRN (11:58)
[2018-05-17] MEDS ORDERED: fentaNYL* 50 MCG/ML 2 ML VIAL (100 MCG VIAL) IV PRN (11:58)
[2018-05-17] MEDS ORDERED: DiMENhydriNATE IV* 50 MG/ML VIAL IV PUSH PRN (11:58)
[2018-05-17] MEDS ORDERED: Morphine VIAL* 4 MG/ML VIAL (1 ml vial) IV PRN (11:58)
[2018-05-17] MEDS: Lactated Ringers 1000 ML Bag* 1,000 ML IV SCH (13:02)
[2018-05-17] MEDS: HYDROcodone/ACETAMIN 5-325 MG* 1 TAB PO PRN ×2 (15:13→22:00)
[2018-05-18] MEDS: Lactated Ringers 1000 ML Bag* 1,000 ML IV SCH (02:18)
[2018-05-18] MEDS: Heparin VIAL(*) 5000 UNITS/ML VIAL (FIVE THOUSAND) SUBCUT SCH ×3 (05:48→21:01)
[2018-05-18] MEDS: amLODIPine TAB* 5 MG PO SCH (07:47)
[2018-05-18] MEDS: HYDROcodone/ACETAMIN 5-325 MG* 1 TAB PO PRN (07:47)
[2018-05-18] MEDS: Atorvastatin* 20 MG TAB PO SCH (07:47)
[2018-05-18] MEDS: Nicotine PATCH 21 MG/24 HR* PATCH TRANSDERM SCH (07:48)
[2018-05-18] MEDS: Metoprolol Tartrate TAB* 25 MG PO SCH ×2 (07:48→20:58)
[2018-05-18] MEDS: Famotidine TAB* 20 MG PO SCH ×2 (07:48→20:57)
[2018-05-18] MEDS: Acetaminophen TAB* 325 MG PO SCH ×2 (07:49→20:56)
[2018-05-18] MEDS: PTO: Emtricitabine/Rilpivirine/Teno (Odefsey) 200/25/25 TABLET PO SCH (07:52)
--- NOTE | 2018-05-18 11:54 | PN ---
Subjective Date of Service: 05/18/18 Interval History: "My hands are coming back"--less numb and less weak. Pain control OK. Objective Active Medications: Acetaminophen (Tylenol Tab*) 650 mg PO Q6H PRN PRN Reason: PAIN Acetaminophen (Tylenol Tab*) 650 mg PO BID [facility] Last Admin: 05/18/18 07:49 Dose: Not Given Hydrocodone Bitart/Acetaminophen ([place] 5-325 Tab*) 2 tab PO Q4H PRN PRN Reason: marked pain Last Admin: 05/18/18 07:47 Dose: 2 tab Albuterol (Ventolin Hfa Inhaler*) 2 puff INH QID PRN PRN Reason: SHORTNESS OF BREATH Amlodipine Besylate (Norvasc Tab*) 10 mg PO DAILY [facility] Last Admin: 05/18/18 07:47 Dose: 10 mg Atorvastatin Calcium (Lipitor*) 20 mg PO DAILY [facility] Last Admin: 05/18/18 07:47 Dose: 20 mg Emtricitabine/Rilpivirine/Tenofovir (Odefsey Tablet) 1 each PO DAILY [facility] Last Admin: 05/18/18 07:52 Dose: Not Given Famotidine (Pepcid Tab*) 20 mg PO BID [facility] Last Admin: 05/18/18 07:48 Dose: 20 mg Heparin Sodium (Porcine) (Heparin Vial(*)) 5,000 units SUBCUT Q8HR [facility] Last Admin: 05/18/18 05:48 Dose: 5,000 units Lactated Ringer's (Lactated Ringers 1000 Ml Bag*) 1,000 mls @ 75 mls/hr IV .per rate [facility] Last Admin: 05/18/18 02:18 Dose: 75 mls/hr Metoprolol Tartrate (Lopressor Tab*) 25 mg PO BID [facility] Last Admin: 05/18/18 07:48 Dose: 25 mg Nicotine (Nicotine Inhaler*) 10 mg INH Q2H PRN PRN Reason: CRAVING Nicotine (Nicotine Patch 21 Mg/24 Hr*) 1 patch TRANSDERM DAILY [facility] Last Admin: 05/18/18 07:48 Dose: 1 patch Ondansetron HCl (Zofran Inj*) 4 mg IV Q6H PRN PRN Reason: NAUSEA/VOMITING Vital Signs - 8 hr 05/18/18 05/18/18 05/18/18 03:58 04:14 05:50 Temperature 98.2 F Pulse Rate 76 Respiratory 16 20 Rate Blood Pressure 152/84 (mmHg) O2 Sat by Pulse 100 100 Oximetry 05/18/18 05/18/18 05/18/18 07:47 07:54 07:55 Temperature 98.3 F Pulse Rate 77 Respiratory 18 16 16 Rate Blood Pressure 149/86 (mmHg) O2 Sat by Pulse 99 99 Oximetry 05/18/18 05/18/18 10:49 11:22 Temperature 98.2 F Pulse Rate 75 Respiratory 16 16 Rate Blood Pressure 129/84 (mmHg) O2 Sat by Pulse 100 Oximetry Oxygen Devices in Use Now: None Appearance: Alert, partly up in bed. In good spirits. Looks comfortable at rest. Eyes: No Scleral Icterus Respiratory: Symmetrical Chest Expansion and Respiratory Effort, Clear to Auscultation, Clear to Percussion Cardiovascular: NL Sounds; No Murmurs; No JVD, RRR, No Edema, - Neurological: Alert and Oriented x 3, NL Sensation - Handgrips strong BL. Foot dorsiflexion good BL. Result Diagrams: 05/17/18 06:48 05/17/18 06:48 Assess/Plan/Problems-Billing Assessment: - Patient Problems (1) Cord compression Current Visit: Yes Status: Acute Code(s): G95.20 - UNSPECIFIED CORD COMPRESSION SNOMED Code(s): 06683024 Comment: -Most severe at C2-C3 to C4-C5 S/P cervical decompression on 05/17/18 -Continue PRN pain meds (2) HTN (hypertension) Current Visit: Yes Status: Acute Code(s): I10 - ESSENTIAL (PRIMARY) HYPERTENSION SNOMED Code(s): 18011374 Comment: Continue Amlodipine. -Continue Heart healthy diet. (3) HIV (human immunodeficiency virus infection) Current Visit: Yes Status: Acute Comment: -Continue anti-retroviral therapy (4) Leukocytosis Current Visit: Yes Status: Acute Code(s): D72.829 - ELEVATED WHITE BLOOD CELL COUNT, UNSPECIFIED SNOMED Code(s): 487974823 Comment: -Pt is afebrile and hemodynamically stable -Likely due to peripheral demarginalization induced by Dexamethasone -Continue watchful waiting CXR 05/16 neg. (5) GERD (gastroesophageal reflux disease) Current Visit: Yes Status: Acute Code(s): K21.9 - GASTRO-ESOPHAGEAL REFLUX DISEASE WITHOUT ESOPHAGITIS SNOMED Code(s): 953597849 Comment: -Continue Famotidine (6) Tobacco abuse Current Visit: Yes Status: Acute Code(s): Z72.0 - TOBACCO USE SNOMED Code( s): 703180574 Comment: Continue NRT. Pt advised to quit smoking and avoid second hand smoke. Status and Disposition: -Pt is a low cardiac risk w/RCRI =1, constituting 0.9% perioperative MACE for a high risk neurosurgical procedure -For planned cord decompression in AM
--- NOTE | 2018-05-18 18:00 | PN ---
Progress Note - Progress Note Date of Service: 05/18/18 SOAP: Subjective: []POD # 1 Feels hands are better Moderate drain output Objective: []Mild intrinsic weakness Moderate drain output Assessment: []Satis post op course Plan: []Have PT see, D/C when drain out ,ambulating
[2018-05-19] MEDS: HYDROcodone/ACETAMIN 5-325 MG* 1 TAB PO PRN (03:29)
[2018-05-19] MEDS: Heparin VIAL(*) 5000 UNITS/ML VIAL (FIVE THOUSAND) SUBCUT SCH ×3 (05:32→21:29)
[2018-05-19] MEDS: Acetaminophen TAB* 325 MG PO SCH ×2 (08:50→21:29)
[2018-05-19] MEDS: Famotidine TAB* 20 MG PO SCH ×2 (08:50→21:29)
[2018-05-19] MEDS: Atorvastatin* 20 MG TAB PO SCH (08:50)
[2018-05-19] MEDS: amLODIPine TAB* 5 MG PO SCH (08:50)
[2018-05-19] MEDS: Metoprolol Tartrate TAB* 25 MG PO SCH ×2 (08:51→21:30)
[2018-05-19] MEDS: Nicotine PATCH 21 MG/24 HR* PATCH TRANSDERM SCH ×2 (08:51→08:53)
[2018-05-19] MEDS: PTO: Emtricitabine/Rilpivirine/Teno (Odefsey) 200/25/25 TABLET PO SCH (08:52)
[2018-05-19] MEDS ORDERED: Magnesium Hydroxide LIQ* 30 ML UDC PO ONE (09:29)
--- NOTE | 2018-05-19 16:36 | PN ---
Subjective Date of Service: 05/19/18 Interval History: Little pain. Appetite OK. No bowel c/o after MOM. Pt states he has wlaked some. Objective Active Medications: Acetaminophen (Tylenol Tab*) 650 mg PO Q6H PRN PRN Reason: PAIN Last Admin: 05/18/18 13:30 Dose: 650 mg Acetaminophen (Tylenol Tab*) 650 mg PO BID [facility] Last Admin: 05/19/18 08:50 Dose: 650 mg Hydrocodone Bitart/Acetaminophen ([place] 5-325 Tab*) 2 tab PO Q4H PRN PRN Reason: marked pain Last Admin: 05/19/18 03:29 Dose: 2 tab Albuterol (Ventolin Hfa Inhaler*) 2 puff INH QID PRN PRN Reason: SHORTNESS OF BREATH Amlodipine Besylate (Norvasc Tab*) 10 mg PO DAILY [facility] Last Admin: 05/19/18 08:50 Dose: 10 mg Atorvastatin Calcium (Lipitor*) 20 mg PO DAILY [facility] [place] Last Admin: 05/19/18 08:50 Dose: 20 mg Emtricitabine/Rilpivirine/Tenofovir (Odefsey Tablet) 1 each PO DAILY [facility] [place] Last Admin: 05/19/18 08:52 Dose: Not Given Famotidine (Pepcid Tab*) 20 mg PO BID [facility] [place] Last Admin: 05/19/18 08:50 Dose: 20 mg Heparin Sodium (Porcine) (Heparin Vial(*)) 5,000 units SUBCUT Q8HR [facility] Last Admin: 05/19/18 14:09 Dose: 5,000 units Lactated Ringer's (Lactated Ringers 1000 Ml Bag*) 1,000 mls @ 75 mls/hr IV .per rate [facility] [place] Last Admin: 05/18/18 02:18 Dose: 75 mls/hr Metoprolol Tartrate (Lopressor Tab*) 25 mg PO BID [facility] [place] Last Admin: 05/19/18 08:51 Dose: 25 mg Nicotine (Nicotine Inhaler*) 10 mg INH Q2H PRN PRN Reason: CRAVING Nicotine (Nicotine Patch 21 Mg/24 Hr*) 1 patch TRANSDERM DAILY [facility] [place] Last Admin: 05/19/18 08:53 Dose: Not Given Ondansetron HCl (Zofran Inj*) 4 mg IV Q6H PRN PRN Reason: NAUSEA/VOMITING Polyethylene Glycol/Electrolytes (Miralax*) 17 gm PO 0800,2100 [facility] Vital Signs - 8 hr 05/19/18 11:53 Temperature 98.2 F Pulse Rate 77 Respiratory 17 Rate Blood Pressure 105/70 (mmHg) O2 Sat by Pulse 98 Oximetry Oxygen Devices in Use Now: None Appearance: Alert, on his side in bed. In good spirits. Looks comfortable. Eyes: No Scleral Icterus Neurological: Alert and Oriented x 3, NL Sensation - LAU. Some dykinetic movements of mouth as before. Result Diagrams: 05/17/18 06:48 05/17/18 06:48 Assess/Plan/Problems-Billing Assessment: - Patient Problems (1) Cord compression Current Visit: Yes Status: Acute Code(s): G95.20 - UNSPECIFIED CORD COMPRESSION SNOMED Code(s): 94654888 Comment: -Most severe at C2-C3 to C4-C5 S/P cervical decompression on 05/17/18 -Continue PRN pain meds Discharge as per Dr. Acosta. (2) HTN (hypertension) Current Visit: Yes Status: Acute Code(s): I10 - ESSENTIAL (PRIMARY) HYPERTENSION SNOMED Code(s): 13664136 Comment: Continue Amlodipine. -Continue Heart healthy diet. (3) HIV (human immunodeficiency virus infection) Current Visit: Yes Status: Acute Comment: -Continue anti-retroviral therapy (4) Leukocytosis Current Visit: Yes Status: Acute Code(s): D72.829 - ELEVATED WHITE BLOOD CELL COUNT, UNSPECIFIED SNOMED Code(s): 471241012 Comment: -Pt is afebrile and hemodynamically stable -Likely due to peripheral demarginalization induced by Dexamethasone -Continue watchful waiting CXR 05/16 neg. (5) GERD (gastroesophageal reflux disease) Current Visit: Yes Status: Acute Code(s): K21.9 - GASTRO-ESOPHAGEAL REFLUX DISEASE WITHOUT ESOPHAGITIS SNOMED Code(s): 285321661 Comment: -Continue Famotidine (6) Tobacco abuse Current Visit: Yes Status: Acute Code(s): Z72.0 - TOBACCO USE SNOMED Code( s): 731728124 Comment: Continue NRT. Pt advised to quit smoking and avoid second hand smoke. Status and Disposition: -Pt is a low cardiac risk w/RCRI =1, constituting 0.9% perioperative MACE for a high risk neurosurgical procedure -For planned cord decompression in AM
[2018-05-19] MEDS: Polyethylene Glycol 3350* 17 GM PACKET PO SCH (21:33)
[2018-05-20] MEDS: HYDROcodone/ACETAMIN 5-325 MG* 1 TAB PO PRN (04:15)
[2018-05-20] MEDS: Heparin VIAL(*) 5000 UNITS/ML VIAL (FIVE THOUSAND) SUBCUT SCH (06:35)
[2018-05-20] MEDS: amLODIPine TAB* 5 MG PO SCH (08:45)
[2018-05-20] MEDS: Famotidine TAB* 20 MG PO SCH (08:45)
[2018-05-20] MEDS: Nicotine PATCH 21 MG/24 HR* PATCH TRANSDERM SCH (08:45)
[2018-05-20] MEDS: Metoprolol Tartrate TAB* 25 MG PO SCH (08:45)
[2018-05-20] MEDS: Acetaminophen TAB* 325 MG PO SCH (08:45)
[2018-05-20] MEDS: Atorvastatin* 20 MG TAB PO SCH (08:45)
[2018-05-20] MEDS: PTO: Emtricitabine/Rilpivirine/Teno (Odefsey) 200/25/25 TABLET PO SCH (08:46)
[2018-05-20] MEDS: Polyethylene Glycol 3350* 17 GM PACKET PO SCH (08:47)
[2018-05-20 09:23] LABS: Hematocrit 50 % (42-52); Hemoglobin 17.6 g/dl (14.0-18.0); Mean Corpuscular HGB Conc 35 g/dl (31-36); Mean Corpuscular Hemoglobin 33 pg (27-31); Mean Corpuscular Volume 95 fL (80-94); Mean Platelet Volume 7.7 fL (7.4-10.4); Platelet Count 230 10^3/ul (150-450); Red Cell Distribution Width 14 % (10.5-15); White Blood Count 8.6 10^3/ul (3.5-10.8)
--- NOTE | 2018-05-20 09:42 | PN ---
Progress Note - Progress Note Date of Service: 05/20/18 SOAP: Subjective: []POD # 3 Doing well Hands numb but stronger Dressing intact Objective: [] Neuro intact except numbness Dressing dry Assessment: []Satis post op course Plan: []D/C to [facility]
[2018-05-20 09:43] LABS: Albumin 3.8 g/dL (3.2-5.2); Albumin/Globulin Ratio 1.4 (1-3); BUN/Creatinine Ratio 29.2 (8-20); Calcium 9.5 mg/dL (8.6-10.3); EGFR Non-African American 71.3 (>60); Globulin 2.8 g/dL (2-4); Magnesium 2.3 mg/dL (1.9-2.7); Phosphorus 3.5 mg/dL (2.5-5.0); Potassium 4.3 mmol/L (3.5-5.0); Total Bilirubin 0.4 mg/dL (0.2-1.0); Total Protein 6.6 g/dL (6.4-8.9)
[2018-05-20 13:52] VITALS: BP 110/58
--- NOTE | 2018-05-20 21:21 | DS ---
DISCHARGE SUMMARY: DATE OF ADMISSION: 05/14/18 DATE OF DISCHARGE: 05/20/18 DISCHARGE DIAGNOSES: As follows: 1. Posterior cervical cord compression, status post posterior cervical decompression surgery. 2. Hypertension, improved. 3. Tobacco abuse, advised lifestyle modifications. 4. History of human immunodeficiency virus. 5. History of gastroesophageal reflux disease. DISCHARGE MEDICATIONS: As follows: 1. Tylenol 650 mg p.o. q.6 p.r.n. and Tylenol 650 mg p.o. b.i.d., not to exceed 3.5 g per day of Tylenol. 2. Albuterol 2 puffs inhalation q.i.d. p.r.n. 3. Amlodipine 10 mg p.o. daily. 4. Atorvastatin 20 mg p.o. daily. 5. Odefsey 1 tab p.o. daily. 6. Lipan 5/325, 12 tabs dispensed with zero refills. 7. Metoprolol 25 mg p.o. b.i.d., 60 tabs, dispensed with zero refills. 8. Nicotine inhaler 10 mg inhalation q.2 hours p.r.n. 9. Nicotine patch 21 mg per 24 hour patch daily. 10. Cetirizine 10 mg p.o. daily. 11. Colace 200 mg p.o. daily. 12. Naproxen 375 mg p.o. b.i.d. 13. Ranitidine 150 mg p.o. b.i.d. 14. Saliva stimulant combination No.12 one gel p.o. daily. HISTORY OF PRESENT ILLNESS/HOSPITAL COURSE: The patient is a 58-year-old - [place] gentleman with a history of HIV positivity, on antiretroviral therapy; asthma; and GERD, who is currently a resident of [place], who was brought to the ER on 05/14/18 for bilateral hand numbness. He mentioned that he has had these symptoms for about a month. Dr. Reyes has seen the patient in consultation as well as Dr. Acosta of Neurosurgery, who then brought the patient on 04/17/18 for decompressive surgery of posterior cervical compression. He has done well perioperatively and mentions that his bilateral hand numbness has significantly improved. Of note, he mentions that there was some improvement after he was started on IV dexamethasone. Post surgery, it appears that the patient has been titrated off of his IV dexamethasone and has done well. He also complained of some nicotine cravings and hence the patient was advised lifestyle modifications as well as nicotine replacement therapy with both transdermal route as well as inhalation route for breakthroughs. He was also found to have uncontrolled hypertension, likely exacerbated by his smoking and the patient was advised lifestyle modifications and was placed on amlodipine and metoprolol. The patient's blood pressure has been well controlled and the patient doing well. The patient had been advised to follow up and re-call his PCP within 3 days post discharge to follow up with Dr. Acosta in 10 days and to call his office to confirm/make an appointment. He was advised to contact his PCP and/or Dr. Acosta's office if he needs refills on his controlled pain medications. He was advised not to take more than 3.5 g per day of acetaminophen/Tylenol and once again, he was reminded of stopping smoking and to use nicotine patches and inhalers instead for breakthroughs. He was advised that if his symptoms resume or develop new ones or feel unwell for any reason to call his PCP first and if his PCP cannot entertain him due to scheduling issues alone to call [facility] if the issues considered nonemergent. He was advised to call my office regarding any questions, concerns or further clarifications regarding his discharge plans and/or prescriptions and to take his medications as prescribed. REVIEW OF SYSTEMS: The patient denies any current headaches, dizziness, fevers , chills, nausea, vomiting, chest pain, shortness of breath, increased cough and /or sputum production, abdominal pain, diarrhea, constipation, pain and/or increased frequency on urination, myalgias, arthralgias, throat pain, or new skin lesions. Some lingering numbness at the bilateral upper extremities that has significantly improved, but still somewhat present. The rest of the 14- point review of systems is otherwise unremarkable. PHYSICAL EXAMINATION: Shows the most recent vital signs of records with blood pressure of 128/71, 68 beats per minute heart rate, 16 per minute respiratory rate, saturating at 99% on room air, temperature of 97.6 degrees Fahrenheit. General Appearance: The patient is awake, alert, and oriented x3, not in acute distress. HEENT: Normocephalic, atraumatic. PERRLA. Extraocular muscles intact. Negative for icterus. Moist oral mucosa. Negative throat erythema. Neck is soft, supple with no cervical lymphadenopathy, no JVD. Heart: S1 and S2 within normal limits. Regular rate and rhythm. No murmurs, rubs or gallops. Chest: Clear to auscultation bilaterally. Good air entry. No wheezes, rales or rhonchi. Abdomen is soft, nondistended, nontender. Normoactive bowel sounds x4 quadrants. Extremities: No cyanosis, clubbing or edema. Psychiatric : No active psychosis, depression, or suicidal or homicidal ideation. Skin is warm to touch. [id number]/[facility] #: [id number] [facility]
--- NOTE | 2018-05-25 03:09 | OP ---
DATE OF OPERATION: 05/17/18 - ROOM #342 DATE OF : 56 PRIMARY SURGEON: Brendon Acosta MD. SAMPLE DYE MIXER: Dr. Wood Lynn. ANESTHESIA: General. PRE-OP DIAGNOSIS: Cervical spondylosis with myelopathy C3-4. POST-OP DIAGNOSIS: Cervical spondylosis with myelopathy C3-4. OPERATIVE PROCEDURE: Decompressive cervical laminectomy C3-4. DESCRIPTION OF PROCEDURE: After satisfactory general anesthesia was obtained, the patient was placed on the operating room table in a prone position with the chest supported on chest rolls and the head maintained with a slight neck flexion utilizing Mckeon head rest. The posterior cervical occipital area was then clipped, prepped and draped in a sterile manner for cervical exposure and a skin incision outlined from the lower occipital area down to the mid cervical spine. This incision was infiltrated with 1% Xylocaine with epinephrine after which it was turned in sharply to the level of the cervical fascia. The fascia was divided along the spinous processes from C2 to C4 and the paraspinal musculature was stripped away from these posterior elements using the periosteal elevator and monopolar cautery. The base of the skull and C2 were palpated and identified and it could be seen that the C3 spinous process was practically tucked under C2. The most inferior aspect of the C2 spinous process was removed with the Leksell rongeur. A decompression was then carried out between C3 and C4 by first removing the spinous process of C3 and C4 and then removing the remaining portion of the base of the spinous process of C3 as well as the lamina of the C3 with Kerrison rongeurs. The dura was removed with Kerrison as well. Complete posterior elements of C3 were removed out to the facet level. The most inferior aspect of C2 was also decompressed as was the most superior aspect of the C4. The decompression was carried out until the cord appeared to no longer be compressed. At the conclusion of the decompression, the cord was pulsatile. After assuring adequate hemostasis, Gelfoam was placed over the laminectomy defect. A drain was placed in the epidural space and tunneled towards the left side. The fascia was then reapproximated with 0 Vicryl suture and the subcutaneous tissues closed with 3- 0 Vicryl suture and the skin was closed with skin clips. The estimated blood loss was less than 100 cc and the final sponge, padding, and needle counts were correct. The patient was taken to the recovery room, extubated and in stable condition. [id number]/[facility] #: [id number] [facility]
== END 2018-05-20 13:40 | disposition home or self-care (01) | DRG 320 ==
LOC: ED 11:25 → EEVIPCON 20:26 → MED 20:26 → SSU 05-17 13:01
PROVIDERS: ADMIT Student in an Organized Health Care Education/Training Program; ATTEND Student in an Organized Health Care Education/Training Program
PROC: 01N10ZZ Release Cervical Nerve, Open Approach (ICD-10-PCS; principal; 2018-05-14)
DX: M50.31 Other cervical disc degeneration, high cervical region (principal); M47.12 Other spondylosis with myelopathy, cervical region; G95.29 Other cord compression; M48.02 Spinal stenosis, cervical region; I10 Essential (primary) hypertension; Z21 Asymptomatic human immunodeficiency virus [HIV] infection status; K21.9 Gastro-esophageal reflux disease without esophagitis; F17.210 Nicotine dependence, cigarettes, uncomplicated; G89.29 Other chronic pain; E78.5 Hyperlipidemia, unspecified; J44.9 Chronic obstructive pulmonary disease, unspecified; R29.702 NIHSS score 2; D72.829 Elevated white blood cell count, unspecified; Z88.0 Allergy status to penicillin; Z85.46 Personal history of malignant neoplasm of prostate
CPT/HCPCS: 36415; 70450; 71046; 72125; 72141; 80048; 80053; 80061; 81003; 83605; 83735; 84100; 84484; 85025; 85027; 85610; 86850; 86900; 86901; 93005; 99283; 99406; A9270-GY; J0360; J1100; J1644; J1650; J1885; J2250; J2270; J2360; J2405; J2704; J3010

== ENCOUNTER 2023-07-22 10:10 | Observation (INO) ==
[~2023-07-22 10:10] MED LIST: ceFAZolin 2 GM in NS PREMIX 2 GM/100 ML BAG IVPB ONE
[2023-07-22 10:46] LABS: Rapid COVID-19 Molecular Undetected (Undetected)
[2023-07-22] MEDS ORDERED: Midazolam 2 mg/2 ml VIAL 1 mg/ml 2 ml VIAL (2 mg) ONE (11:32)
[2023-07-22] MEDS ORDERED: ROPIVACAINE 5 MG/ML 30 ML BTL (0.5%) ONE (12:24)
[2023-07-22] MEDS ORDERED: fentaNYL 100 mcg/2 ml 50 MCG/ML VIAL ONE ×2 (12:47→15:29)
[2023-07-22] MEDS ORDERED: Ondansetron 4 mg VIAL 2 MG/ML 2 ml VIAL ONE (12:49)
[2023-07-22] MEDS ORDERED: Dexamethasone IV 4 MG/ML VIAL 1 ml VIAL ONE (12:49)
[2023-07-22] MEDS ORDERED: Propofol 10 MG/ML 20 ML BTL ONE (12:49)
[2023-07-22] MEDS ORDERED: Lidocaine 2% PF 5 ML VIAL ONE (12:51)
[2023-07-22] MEDS ORDERED: Bupivacaine 0.5% 50 ML MDV VIAL ONE (13:23)
[2023-07-22] MEDS ORDERED: Bupivacaine 0.25% EPI 200,000 30 ML SDV ONE (13:23)
[2023-07-22] MEDS ORDERED: Vancomycin 1,000 MG VIAL ONE (13:23)
[2023-07-22] MEDS ORDERED: Acetaminophen IV 1 GM/100ML 1,000 MG/100 ML BAG IV ONE (14:36)
[2023-07-22] MEDS ORDERED: fentaNYL 100 mcg/2 ml 50 MCG/ML VIAL IV PRN (15:31)
[2023-07-22] MEDS ORDERED: Naloxone 0.4 mg VIAL 0.4 mg/ml 1 ml VIAL IV PRN (15:31)
[2023-07-22] MEDS ORDERED: Ondansetron 4 mg VIAL 2 MG/ML 2 ml VIAL IV PRN ×2 (15:31→17:11)
[2023-07-22] MEDS ORDERED: Acetaminophen IV 1 GM/100ML 1,000 MG/100 ML BAG IV PRN (15:31)
[2023-07-22] MEDS ORDERED: HYDROmorphone 1 MG/1 ML SYRINGE IV PRN (15:31)
[2023-07-22] MEDS ORDERED: HYDROmorphone 0.5 MG/0.5 ML SYRINGE ONE (16:30)
[2023-07-22] MEDS ORDERED: Ondansetron ODT 4 mg TAB 4 MG TAB PO PRN (17:11)
[2023-07-22] MEDS ORDERED: Lactulose 30 ml UDC PO PRN (17:11)
[2023-07-22] MEDS ORDERED: Morphine 2 MG/ML SYRINGE IV PRN (17:11)
[2023-07-22] MEDS ORDERED: Magnesium Hydroxide LIQ 30 ML UDC PO PRN (17:11)
[2023-07-22] MEDS: Lactated Ringers 1000 ml BAG 1,000 ML IV SCH ×2 (20:25→21:04)
[2023-07-22] MEDS: Buffered Lidocaine 1% SYRIN 1 ml INTRADERM ONE (21:04)
[2023-07-22] MEDS: Magnesium Hydroxide LIQ 30 ML UDC PO SCH (21:22)
[2023-07-22] MEDS: ceFAZolin 1 GM ADVAN 1 GM in NS 0.9% 50 ML 50 ML IVPB SCH (23:49)
[2023-07-23 05:59] LABS: Hematocrit 31.3 % (38-53); Hemoglobin 11.2 g/dL (13.2-16.3); Mean Platelet Volume 8.4 fL (7.5-11.2); Platelet Count 195 10^3/uL (150-450)
[2023-07-23 06:40] LABS: Creatinine, Serum 1.42 mg/dL (0.67-1.17); Potassium 4.4 mmol/L (3.5-5.0); eGFR CKD-EPI 54.8 (>60)
[2023-07-23] MEDS: Vitamin THERAPEUTIC TAB PO SCH (08:03)
[2023-07-23] MEDS: DOLUTEGRAVIR LAMIVUDINE PO SCH (10:54)
[2023-07-23] MEDS: Scopolamine 1 mg/72hr PATCH TRANSDERM SCH (12:01)
[2023-07-23 17:49] VITALS: BP 127/80
== END 2023-07-23 18:15 ==
LOC: AA 10:10 → INTOOBSV 10:10 → SSU 19:30
PROVIDERS: ADMIT Orthopaedic Surgery; ATTEND Orthopaedic Surgery